=== PATIENT | female | born 1965 | race Caucasian/White ===

== ENCOUNTER 2018-12-12 10:22 | Emergency (ER) | payer OTHER ==
[~2018-12-12] VITALS: Ht 157.5 cm; Wt 58.5 kg
[~2018-12-12 10:22] MED LIST: OSEL75CA PO; PRILOSEC20 MG; PROVENTIL3 ML/2.5 M IH; TUSSIONEX PENNKI5 ML; TUSSIONEX PENNKI5 ML PO; ZITHROMAX500 MG PO
[2018-12-12] MEDS ORDERED: TESSALON PERLE100 MG PO (10:50)
[2018-12-12] MEDS ORDERED: ZYRTEC10 M3 PO (10:51)
== END 2018-12-12 14:04 | disposition home or self-care (01) ==
LOC: ER 10:22
DX: R05 Cough (principal)

== ENCOUNTER 2021-07-12 19:10 | Emergency (ER) | payer OTHER ==
[~2021-07-12] VITALS: Ht 157.5 cm; Wt 56.7 kg
[~2021-07-12 19:10] MED LIST changes: +TESSALON PERLE100 MG PO; +ZYRTEC10 M3 PO
[2021-07-12] MEDS ORDERED: PRILOSEC OTC20 MG (19:29)
[2021-07-12] MEDS ORDERED: CLIMARA1 EAC5 (19:29)
[2021-07-12] MEDS ORDERED: ACTINEL LIQUID474 ML PO (22:16)
[2021-07-12] MEDS ORDERED: BUDEO.25 IH (22:16)
[2021-07-12] MEDS ORDERED: ZITHROMAX500 MG PO (22:21)
== END 2021-07-12 22:49 | disposition home or self-care (01) ==
LOC: ER 19:10
DX: U07.1 COVID-19 (principal); Z88.8 Allergy status to other drugs, medicaments and biological substances

== ENCOUNTER 2024-02-03 13:32 | Emergency (ER) | payer OTHER ==
[~2024-02-03] VITALS: Ht 157.5 cm; Wt 59.0 kg
[~2024-02-03 13:32] MED LIST changes: +ACTINEL LIQUID474 ML PO; +BUDEO.25 IH; +CLIMARA1 EAC5; +PRILOSEC OTC20 MG
[2024-02-03] MEDS ORDERED: PRILOSEC OTC20 MG PO (14:06)
[2024-02-03] MEDS ORDERED: ORPHENADRINE CITRATE 30 MG/ML AMPUL IM STA (17:33)
[2024-02-03] MEDS ORDERED: DEXAMETHASONE SODIUM PHOSPHATE 4 MG/ML VIAL IM STA (17:33)
[2024-02-03] MEDS ORDERED: KETOROLAC TROMETHAMINE 30 MG VIAL IM STA (17:33)
[2024-02-03] MEDS ORDERED: GABAPENTIN100 M2 PO (20:31)
[2024-02-03] MEDS ORDERED: DEXAMETHASONE4 MG PO (20:31)
[2024-02-03] MEDS ORDERED: ZANAFLEX4 M1 PO (20:31)
== END 2024-02-03 22:43 | disposition home or self-care (01) ==
LOC: ER 13:32
DX: M54.31 Sciatica, right side (principal); M54.50 Low back pain, unspecified; Z88.1 Allergy status to other antibiotic agents